=== PATIENT | female | born 2000 | race African-American/Black ===

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

== ENCOUNTER 2019-02-28 21:30 | Emergency (ER) | payer OTHER ==
[~2019-02-28] VITALS: Ht 175.3 cm; Wt 59.9 kg
[~2019-02-28 21:30] MED LIST: BIOT5TAB3 PO; HYDR-3363 PO; NICO14PA TD; QUET1TAB8 PO; QUET5TAB PO; SERT-141 PO; TRAZ1TAB10 PO; seroquel
[2019-02-28] MEDS ORDERED: LITH1TAB (21:58)
[2019-03-01 02:29] VITALS: BP 131/73
== END 2019-03-01 02:36 | disposition short-term general hospital (02) ==
LOC: M ED 22:36
DX: F32.9 Major depressive disorder, single episode, unspecified (principal); R45.851 Suicidal ideations; F15.10 Other stimulant abuse, uncomplicated; Z79.899 Other long term (current) drug therapy

== ENCOUNTER 2019-12-01 11:54 | Inpatient (IN) | payer MEDICAID, OTHER ==
[~2019-12-01] VITALS: Ht 177.8 cm; Wt 67.9 kg
[~2019-12-01 11:54] MED LIST changes: +LITH1TAB; +QUET100T2 PO; -QUET1TAB8 PO
[2019-12-01] MEDS ORDERED: TRAZ-252 PO (12:23)
[2019-12-01] MEDS ORDERED: HYDR-643 PO (12:23)
[2019-12-01] MEDS ORDERED: LAMO200T54 PO (12:23)
[2019-12-01] MEDS ORDERED: MIRT1TAB16 PO (12:23)
[2019-12-01] MEDS ORDERED: MOM 30ML SUSPENSION UDC PO PRN (15:00)
[2019-12-01] MEDS ORDERED: ACETAMINOPHEN TAB 650MG DOSE (2X325MG) PO PRN (15:00)
[2019-12-01] MEDS ORDERED: MAALOX 30 ML SUSP *UDC PO PRN (15:00)
[2019-12-01] MEDS ORDERED: MEDR150I10 IM (15:11)
[2019-12-01] MEDS ORDERED: REME30TA PO (15:11)
[2019-12-01 16:05] VITALS: BP 132/77
[2019-12-01] MEDS: MIRTAZAPINE 15 MG TAB PO SCH (20:53)
[2019-12-02 06:29] VITALS: BP 122/62
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
[2019-12-02] MEDS ORDERED: lamoTRIgine 25 MG TAB PO ONE (11:00)
[2019-12-02 17:08] VITALS: BP 137/65
[2019-12-02 17:29] LABS: HEMATOCRIT 39.9 % (36.0-47.0); HEMOGLOBIN 13.3 g/dl (12.0-15.5); MEAN CORPUSCULAR HEMOGLOBIN 29.8 pg (27.0-33.0); MEAN CORPUSCULAR HGB CONC 33.3 g/dl (32.0-36.5); MEAN CORPUSCULAR VOLUME 89.3 fl (80.0-96.0); PLATELET COUNT, AUTOMATED 330 10^3/uL (150-450); RED BLOOD COUNT 4.47 10^6/uL (4.00-5.40); WHITE BLOOD COUNT 7.1 10^3/uL (4.0-10.0)
[2019-12-02 18:04] LABS: ALBUMIN 4.2 GM/DL (3.2-5.2); ALT/SGPT 31 U/L (12-78); BILIRUBIN,TOTAL 0.3 MG/DL (0.2-1.0); BLOOD UREA NITROGEN 17 MG/DL (7-18); CALCIUM LEVEL 9.4 MG/DL (8.5-10.1); CARBON DIOXIDE LEVEL 23 MEQ/L (21-32); CHLORIDE LEVEL 106 MEQ/L (98-107); CREATININE FOR GFR 0.86 MG/DL (0.55-1.30); GLUCOSE, FASTING 81 MG/DL (70-100); MAGNESIUM LEVEL 2.2 MG/DL (1.8-2.4); POTASSIUM SERUM 3.9 MEQ/L (3.5-5.1); SODIUM LEVEL 140 MEQ/L (136-145); TOTAL PROTEIN 7.7 GM/DL (6.4-8.2)
[2019-12-02] MEDS: MIRTAZAPINE 15 MG TAB PO SCH (20:06)
[2019-12-03 06:08] VITALS: BP 122/59
[2019-12-03] MEDS: lamoTRIgine 25 MG TAB PO SCH (08:45)
[2019-12-03 16:22] VITALS: BP 145/68
[2019-12-03] MEDS: QUEtiapine FUMARATE 25 MG TAB PO SCH (20:11)
[2019-12-03] MEDS: MIRTAZAPINE 15 MG TAB PO SCH (20:11)
[2019-12-03] MEDS: traZODone 50 MG TAB PO PRN (20:11)
[2019-12-04 06:23] VITALS: BP 108/54
[2019-12-04] MEDS: lamoTRIgine 25 MG TAB PO SCH (09:25)
--- NOTE | 2019-12-04 15:58 | MHIPN ---
DATE: 12/03/2019 This is a video assessment, it is being done because of the virus pandemic, the patient is aware of this. CHIEF COMPLAINT: She feels depressed. SUBJECTIVE: She is seen for followup, in the presence of staff. She says she has continued feeling depressed, does not think that she is feeling much different since coming in, moods are down, says has slept, but does not feel rested. She feels anxious as well. Vague on suicidal thoughts, and then suggests that she does not have any. She also reported that she had had thoughts of suicide but did not act on those thoughts, though the initial assessment suggests that she actually overdosed. She says she has been diagnosed with bipolar disorder, was diagnosed last year, attends outpatient at [place]. Reports periods of a depressed mood, which is consistent, also changes in appetite and sleep, a sense of hopelessness, suicidal thoughts, and that these periods last for weeks at a time. She also has periods where she has an elated mood, no sleep, racing thoughts, is impulsive, more energetic, full of ideas, will start projects but not complete them, go on spending sprees, will make financial and social decisions which are impulsive, says these periods do not last for more than a couple of days or so, denies that they have ever gone as long as a week. She says the periods of an elated mood are generally followed by "crash" where she feels tired, sleeps more, withdraws socially, appetite goes up, feels depressed. Those periods last longer. She says she is adopted, but that she was informed that her biological mother and brother were both diagnosed with bipolar disorder. She uses cannabis, says the use goes up when she is in an elated mood, but that she also uses mushrooms at that time. She says there are times when she uses mushrooms when depressed, and that may be followed a period of an elated mood, but other times when she is more likely to use mushrooms when she already has an elated mood. MENTAL STATUS EXAMINATION: She is neat, cooperative, but somewhat guarded. No agitation. No psychomotor retardation. She answers questions briefly. Affect is restricted in range. She feels depressed. Denies any suicidal thoughts or intents. No homicidal ideas or intents. Currently no evidence of any psychosis. Cognition grossly intact. No fluctuation of consciousness. Judgment and insight are questionable. ASSESSMENT: 1. Other specified bipolar and related disorder. 2. Rule out major depressive disorder, recurrent. The patient has been diagnosed with bipolar disorder. The symptoms she describes particularly with hypomania point towards that, except for the length of time, which she says does not go beyond a couple of days or so. She says when she was at [facility], admitted, within the last few months or year or so, says they thought she may have bipolar disorder, but they also considered borderline personality disorder, and opted for the bipolar disorder. PLAN: Since she is effectively been off the Lamictal, was on 200 mg daily, and after the overdose was not given any for a few days, and this was restarted at 25 mg, we will continue with 25 mg daily. We may need to titrate it upward slowly. Meanwhile, I would suggest starting Seroquel to help with mood stabilization as Lamictal may not be an effective mood stability on its own. She says she has been on it since last summer, at the dose of 200 mg daily, and she does not think that it has made much difference. She thinks she may have been on Seroquel in the past, and tolerated it well. The rationale for using the Seroquel is discussed, as are the drawbacks, and she understands them. The Seroquel may need to be titrated up eventually. I would suggest continuing with the Remeron, but avoid an increase in that. She is to be encouraged to participate in activities on the unit, as tolerated, and feasible, and we will continue with the other precautions. Further recommendations to be made depending on the clinical picture. The assessment took 25 minutes.
[2019-12-04 16:45] VITALS: BP 135/70
[2019-12-04] MEDS: QUEtiapine FUMARATE 25 MG TAB PO SCH (20:28)
[2019-12-04] MEDS: traZODone 50 MG TAB PO PRN (20:28)
[2019-12-04] MEDS: MIRTAZAPINE 15 MG TAB PO SCH (20:28)
--- NOTE | 2019-12-05 04:15 | HPE ---
DATE OF ADMISSION: 12/02/2019 CHIEF COMPLAINT: Bipolar disorder. HISTORY OF PRESENTING ILLNESS: This is a 19-year-old female with a history of bipolar disorder, prior inpatient mental health unit ([facility]) admissions being medically examined. No acute medical complaints. Denies fever or chills, weight gain and weight loss, insomnia, sore throat, ear pain, changes in vision, blurred vision, dizziness, lightheadedness, chest pain, pressure, tightness, shortness of breath, nausea, vomiting, diarrhea, abdominal pains, urgency, frequency. PAST MEDICAL HISTORY: 1. Bipolar disorder. 2. Anxiety. 3. Self-harming and cutting. 4. Depression. PAST SURGICAL HISTORY: None. SOCIAL HISTORY: Now lives in [place]. Currently single. 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 Uses vaping. Drinks wine coolers monthly. ALLERGIES: No known drug allergies. HOME MEDICATIONS: - hydroxyzine - medroxyprogesterone acetate - trazodone - lamotrigine - mirtazapine HOSPITAL MEDICATIONS: - acetaminophen - Mylanta - Lamictal - Milk of Magnesia - Remeron - Desyrel FAMILY HISTORY: Adopted, unable to be obtained. REVIEW OF SYSTEMS: Per history of presenting illness (HPI). 12-point system otherwise negative. PHYSICAL EXAMINATION: Temperature 98.8, pulse 69, respiratory rate 14, blood pressure 122/62, 99% on room air. Generally: Awake, alert, oriented times three. Answers questions appropriately. Normal affect. No jugular venous distension (JVD) or thyromegaly. Neck is supple. Full range of motion. Lungs: Are clear to auscultation. No wheezing, rales, or rhonchi. Heart: S1, S2, sinus rhythm. Abdomen: Soft, nontender, nondistended. Positive bowel sounds. Extremities: No cyanosis, clubbing, or pitting edema. LABORATORY DATA: None. ASSESSMENT AND PLAN: This is a 19-year-old with bipolar disorder admitted to inpatient mental health unit. Hospitalist was called for medical evaluation. Patient currently has no acute medical issues. IMPRESSION: Bipolar disorder. Managed by her psychiatrist. Currently has no medical issues, but we will check thyroid-stimulating hormone (TSH), lipid profile, basic metabolic panel (BMP), liver function tests. [facility]
[2019-12-05 06:37] VITALS: BP 111/71
[2019-12-05] MEDS: lamoTRIgine 25 MG TAB PO SCH (08:23)
--- NOTE | 2019-12-05 10:05 | MHDSPDOC ---
[facility] Discharge Summary Discharge Summary DATE OF ADMISSION: December 01, 2019 at 14:58 DATE OF DISCHARGE: Dec 05, 2019 at 12:30 DISCHARGE DIAGNOSES: (1) Depressed (2) Cluster B personality disorder (3) Cannabis abuse REASON FOR ADMISSION: 19-year-old woman admitted after overdose of hydroxyzine CONSULTANTS INVOLVED: none TREATMENT AND PROGRESS ON THE UNIT : patient was admitted to the inpatient mental health unit, where she revealed she had not been taking her medications, she was resumed on her mirtazapine but her Lamictal was restarted at 25 milligrams. She was additionally resumed on trazodone that any incident. She made good progress in resolved after observation. Denies any suicidal or homicidal ideation. She was in behavioral control during her presentation DISCHARGE ASSESSMENT: 19-year-old woman with likely depression and cluster B personality traits presents after impulsive overdose. After stopping taking her medications. She is treated by resuming her medications without incident. The patient at the time of discharge did not meet criteria for involuntary admission/extension due to having a baseline mental status exam, improved insight into the situation, They are engaged in the discharge process, as well as being friendly and amenable in behavioral control and havent been engaging in any observed concerning behavior or ideation recently. They decline voluntary extension/admission at this time and must be discharged in good tennille, as Im unable to make a case for holding the patient against their will. They may have historical risk factors of admissions and other interactions with psychiatry however, those are not modifiable from a clinical perspective. The patient will need to be discharged in good tennille. MENTAL STATUS EXAMINATION ON DISCHARGE: General: Well dressed with good hygiene Speech: Spontaneous and fluid Thought processes: Linear and logical Thought content: Future orientated Abstract reasoning, and computation: Intact Description of associations: Intact Description of abnormal or psychotic thoughts:Denies any suicidal or homicidal ideation. Denies any auditory or visual hallucinations. Does not appear to be responding to internal stimuli. Does not appear to be endorsing any bizarre or paranoid ideation. Judgment: chronically limited Insight: chronically limited Orientation: Alert and orientated 3 Recent and remote memory: Intact Attention span and concentration: Intact Fund of knowledge: Adequate Mood: "okay" Affect: Euthymic with a full range PLAN/FOLLOWUP ARRANGEMENTS: [facility] follow-up made safety plan done. The amount of time spent in the coordination of care for this patient was approximately 45 minutes. Vital Signs/I&Os Vital Signs Date Time Temp Pulse Resp B/P (MAP) Pulse Ox O2 Delivery O2 Flow Rate FiO2 12/05/19 06:37 98.2 67 16 111/71 (84) 99 Room Air Medications Scheduled Lamotrigine (Lamictal) 25 Mg Tablet, 25 MG PO QAM for MOOD for 7 Days, #7 Medroxyprogesterone Acetate (Medroxyprogesterone Acetate) 150 Mg/1 Ml Vial, 150 MG IM Q3M, (Reported) DUE TO RECEIVE NEXT DOSE MID-DECEMBER Mirtazapine (Remeron) 30 Mg Tablet, 30 MG PO QHS, (Reported) Quetiapine Fumarate (Quetiapine Fumarate) 50 Mg Tablet, 1 TAB PO QPM for mood for 7 Days, #7 Trazodone HCl (Trazodone HCl) 50 Mg Tablet, 25 MG PO QHS, (Reported) Allergies Coded Allergies: No Known Allergies (Unverified , 06/17/18) RALPH MONROE DO Dec 05, 2019 10:05
[2019-12-05] MEDS ORDERED: LAMI25TA PO (10:14)
[2019-12-05] MEDS ORDERED: QUET50TA48 PO (10:14)
[2019-12-05] MEDS ORDERED: QUET5TAB PO (12:20)
[2019-12-05] MEDS ORDERED: QUEtiapine FUMERATE XR 50 MG TABER PO SCH (21:00)
--- NOTE | 2019-12-06 06:26 | MHIPN ---
DATE: 12/05/2019 VITAL SIGNS: Blood pressure 135/70, pulse 71, temperature 97.8. CHIEF COMPLAINT: Feels better. SUBJECTIVE: Seen for followup. This is a video assessment. She is aware of this and agrees to it. Says feels better and that she had a better night's sleep. Feels rested. Appetite is improved. Feels less anxious. MENTAL STATUS EXAMINATION: Neat. Cooperative. More interactive. Broader affect. Coherent. Says is not sure of suicidal thoughts and does not think that she has any at present. No homicidal ideas or intent. No evidence of any psychosis. Cognition grossly intact. Judgment is fair. Insight possibly improved. ASSESSMENT: Other specified bipolar and related disorder. Rule out major depressive disorder, recurrent. PLAN: Continue Seroquel at 25 mg at night. May need to consider increasing it to 50 mg for tomorrow night onwards, and may also consider, later, increasing the Lamictal. Encouraged participation in activities in the unit. Further recommendations will be made by the inpatient psychiatrist tomorrow.
== END 2019-12-05 12:30 | disposition home or self-care (01) | DRG 754 ==
LOC: M ED 11:54 → M ED INP 14:58 → M PSY 15:34
PROVIDERS: ADMIT Psychiatry & Neurology Addiction Medicine; ATTEND Psychiatry & Neurology Addiction Medicine
DX: F32.9 Major depressive disorder, single episode, unspecified (principal); Z91.14 Patient's other noncompliance with medication regimen; F60.89 Other specific personality disorders; F12.90 Cannabis use, unspecified, uncomplicated; Z79.899 Other long term (current) drug therapy

== ENCOUNTER → 2020-05-23 | Outpatient (CLI) | payer OTHER ==
[~2020-05-23] MED LIST changes: +HYDR-643 PO; +LAMI25TA PO; +LAMO200T54 PO; +MEDR150I10 IM; +MIRT1TAB16 PO; +QUET50TA48 PO; +REME30TA PO; +TRAZ-252 PO
[2020-05-23 12:05] VITALS: BP 128/60
--- NOTE | 2020-05-23 12:50 | REP ---
INDICATION: N63.20 LT BREAST MASS. COMPARISON: Ultrasound [facility] 11/22/2019. TECHNIQUE: Real-time sonographic evaluation of left breast performed. Ultrasound guidance was provided for biopsy. FINDINGS: Solid nodule noted at 6 o'clock position left breast demonstrating internal blood flow with Doppler evaluation. It measures 1.7 cm in diameter. IMPRESSION: Ultrasound guidance provided for ultrasound-guided biopsy of left breast nodule at 6 o'clock. The final image shows a linear biopsy clip within the nodule. RECOMMENDATION: Clinical follow-up. <Electronically signed by Odilon Dee > 05/23/20 1247
--- NOTE | 2020-05-26 17:10 | ROOPDOC ---
[facility] Report Of Operation Report of Operation DATE OF PROCEDURE: 05/23/2020 DIAGNOSIS: Suspicious palpable left breast mass PROCEDURE: Ultrasound-guided biopsy of suspicious palpable left breast mass SURGEON: Anh Hwang BLOOD LOSS: minimal COMPLICATIONS: none Lidocaine 1% LOT [id number] Expiration 02/2023 Sodium Bicarbonate 8.4% LOT [id number] Expiration 04/2021 Hydromark clip LOT [id number] Expiration 11/2022 SHAPE 4 Bx device: BARD [id number] x10 cm LOT [id number] Expiration 01/2023 Informed consent was obtained. The most common risk and possible complications including bleeding, hematoma, bruising, infection, injury to surrounding structures were explained to the patient and the patient expressed un derstanding. Patient was placed on the bed in the supine position. Appropriate time out was done stating patients name, date of , and the procedure to be performed. The left breast was prepped and draped in the usual fashion. The ultrasound was used to confirm the location of the lesion in the left breast at 7 oclock 2 centimeters from the nipple. Plain Lidocaine 1% and 8.4% sodium bicarbonate 10:1 mix was used to anesthetize the skin, the biopsy site and tissues along the anticipated biopsy tract. Small skin incision was made with blade number 11. BARD Marquee 14G cannula with introducer ([id number]) was inserted through the incision and advanced under the ultrasound guidance to position immediately adjacent to the lesion. Next, the introducer was removed and BARD Marquee 14G biopsy device was places in the cannula. Pre-biopsy imaging, and post-biopsy imaging were captured. Five good core biopsies were taken at various levels of the lesion. Specimen was placed in formaldehyde, labeled with appropriate biopsy site and patients name, and sent to pathology for evaluation. Next, the biopsy device was withdrawn and a clip introducer was inserted into the biopsy site via the cannula. The SHAPE 4 Hydromark clip was deployed under sonographic guidance. Post-clip placement image was captured. Manual pressure over the biopsy cavity and tract was held after the clip introducer was withdrawn. No bleeding was noted upon removal of the pressure. Post-biopsy mammogram of the left breast was obtained and showed clip in expected position. Postprocedural dressing was placed. Patient tolerated procedure well. Discharge instructions were discussed with the patient and the patient expressed understanding. ANH HWANG DO May 26, 2020 17:10
== END ==
LOC: M WHCPRO 10:32
PROVIDERS: ATTEND Surgery
DX: N60.22 Fibroadenosis of left breast (principal)

== ENCOUNTER → 2020-07-05 | Outpatient (CLI) | payer OTHER ==
[~2020-07-05] MED LIST changes: +BUSP10TA PO; +MIRT-60 PO; -REME30TA PO
== END ==
LOC: M LABSMTC 11:30
PROVIDERS: ATTEND Anesthesiology
DX: Z01.812 Encounter for preprocedural laboratory examination (principal); Z20.828 Contact with and (suspected) exposure to other viral communicable diseases

== ENCOUNTER 2020-07-10 06:15 | Day surgery (SDC) | payer OTHER ==
[~2020-07-10] VITALS: Ht 177.8 cm; Wt 66.7 kg
[2020-07-10] MEDS ORDERED: LIDOCAINE 1% SDV 30ML VIAL As Ordered ONE (07:10)
[2020-07-10] MEDS ORDERED: BUPIVACAINE HCL 0.25% 30ML VIAL As Ordered ONE (07:11)
[2020-07-10] MEDS ORDERED: SCOPOLAMINE 1MG TRANSDERMAL PATCH As Ordered ONE (07:15)
[2020-07-10] MEDS ORDERED: HEPARIN SOD (PORCINE) 5000UNITS/ML 1ML VIAL/SYRINGE As Ordered ONE (07:15)
[2020-07-10] MEDS ORDERED: ceFAZolin 2 GM/D5W 50 ML IV BAG (J0690 PER 500MG) As Ordered ONE (07:15)
[2020-07-10] MEDS ORDERED: LIDOCAINE 2% 100MG/5ML SDV (FOR ANES.) As Ordered ONE (07:20)
[2020-07-10] MEDS ORDERED: propofoL 200 MG/20 ML VIAL As Ordered ONE (07:20)
[2020-07-10] MEDS ORDERED: fentaNYL 100 MCG/2 ML INJECTION (J3010) As Ordered ONE (07:21)
[2020-07-10] MEDS ORDERED: ceFAZolin SOD 2 GM in IV 1 EA IV ONE (07:30)
[2020-07-10] MEDS ORDERED: HEPARIN SOD (PORCINE) 5000UNITS/ML 1ML VIAL/SYRINGE SQ ONE (07:30)
[2020-07-10] MEDS ORDERED: LR 1,000 ML IV ONE (07:30)
[2020-07-10] MEDS ORDERED: SCOPOLAMINE 1MG TRANSDERMAL PATCH TOP ONE (07:30)
[2020-07-10] MEDS ORDERED: MIDAZOLAM INJ 2MG/2ML VIAL (J2250 PER 1MG) As Ordered ONE (07:37)
[2020-07-10] MEDS ORDERED: dexameTHASONE 4 MG/ML 1ML VIAL (J1100 PER 1MG) As Ordered ONE (08:21)
[2020-07-10] MEDS ORDERED: ONDANSETRON 4MG/2ML VIAL As Ordered ONE (08:21)
[2020-07-10] MEDS ORDERED: LACRILUBE (AKWA TEARS) OPHTH OINT 3.5 GM As Ordered ONE (08:28)
[2020-07-10] MEDS ORDERED: KETO10TAB PO (09:01)
[2020-07-10] MEDS ORDERED: LR 1,000 ML IV SCH (09:30)
[2020-07-10] MEDS ORDERED: METOCLOPRAMIDE INJ 10MG/2ML VIAL (J2765 PER 1) IV PRN (09:30)
[2020-07-10] MEDS ORDERED: HYDROMORPHONE HCL 0.5 MG/ 0.5 ML SYRINGE (J1170 PER 1) IV PRN (09:30)
[2020-07-10] MEDS ORDERED: fentaNYL 100 MCG/2 ML INJECTION (J3010) IV PRN (09:30)
[2020-07-10] MEDS ORDERED: ONDANSETRON 4MG/2ML VIAL IV PRN (09:30)
[2020-07-10 10:20] VITALS: BP 129/76
--- NOTE | 2020-07-11 09:34 | REP ---
INDICATION: LEFT BREAST BIOPSY. COMPARISON: Comparison sonography May 23, 2020.. TECHNIQUE: Single-view specimen radiograph left breast. FINDINGS: Specimen radiography demonstrates a well-circumscribed mass in the excised breast specimen. Two smaller fragments of tissue are seen adjacent 1 of which contains a needle localization biopsy marker clip IMPRESSION: A well-circumscribed of soft tissue mass is seen within the breast specimen. This measures 1.6 cm in diameter. It is consistent with the biopsied lesion seen on sonography. <Electronically signed by Kee Amaya > 07/11/20 0933
--- NOTE | 2020-07-11 17:58 | ROOPDOC ---
[facility] Report Of Operation Report of Operation DATE OF PROCEDURE: 07/10/20 PREPROCEDURE DIAGNOSES: Left breast fibroadenoma POSTPROCEDURE DIAGNOSES: Left breast fibroadenoma PROCEDURE: Left breast excisional biopsy with Intra-Op specimen radiography SURGEON: Anh Hwang ANESTHESIA: General ESTIMATED BLOOD LOSS: Approximately 5 mL. COMPLICATIONS: None REMARKS: Hydromark clip identified immediately adjacent to the palpable mass DESCRIPTION OF PROCEDURE: INDICATIONS: Ms. Rivera is a 20-year-old woman who was found to have an enlarging and a suspicious mass in her left breast which was conformed on the Left breast sonography. She underwent ultrasound guided biopsy of the left breast and the pathology came back as fibroadenoma. Due to the size of the lesion approaching 2 cm and due to the fact that the lesion grew since previous sonographic evaluation patient was offered left breast excisional biopsy. No guide wire placement is needed due to the fact that lesion is palpable. She was medically cleared for surgery by her primary care doctor. Risks and possible complications of surgical procedure including bleeding, infection and injury to surrounding structures were explained to the patient and she wished to proceed. Consent was signed. My initials were placed on the operative site. Subcutaneous injection of 5000 units of heparin was done in Preop. DETAILS: Patient was taken to the operating room and placed on the operating room table. A sign in was called stating patients name, date of and the procedure to be done. Preoperative antibiotics were infused. Smooth induction of general anesthesia was done. Patients hands were extended on arm rests. Care was taken not to over extend the arms. Pillow was placed under the knees and a foam was placed under the heels. Sequential compression devices were placed and assured to function correctly. Next, patients left breast and axilla were prepped and draped in the usual fashion. Appropriate time out was done again prior second part of the procedure. Patients name, date of , and the procedure to be done were confirmed. Next, local anesthetic using 1% lidocaine and 0.25 % Marcaine 50/50 mix was injected at the site of planned left inframammary fold incision. The incision was made with the scalpel. Subcutaneous skin flaps were raised. Palpation was used to guide the dissection. Upon encountering the capsule of the fibroadenoma, an anchoring stitch was placed to aid with removal of the lesion. Surrounding soft tissue was carefully dissected from the capsule. During dissection I noted the Hydromark. This was carefully removed from the dissection area and placed on the specimen tray to be x-rayed along with the specimen. The excisional biopsy specimen was carefully removed from the breast keeping its proper orientation and moved to the back table where margins were marked with the surgical inking kit following the standard colors recommendations. Specimen was then placed on the grid and placed in H-art (WPP) Specimen Imaging System. The image revealed the nodule and the Hydromark clip. The specimen was labeled with patients name and left excisional biopsy and sent to pathology. Next, the wound was irrigated thoroughly and adequate hemostasis was assured. Additional local anesthetic was injected into surrounding tissues. space was approximated with 2-0 Vicryl. The dermis was closed with 3-0 Vicryl and skin was closed with 4-0 Monocryl. Surgical glue was placed over the incision. Patient emerged from the anesthesia without any problems. Fluffs were placed over the operative site and patients chest was wrapped snuggly in the MYLENE wrap. Sponge and instrument counts were done and were correct. Patient tolerated procedure well and was taken to recovery unit in stable condition. ANH HWANG DO Jul 11, 2020 17:58
== END 2020-07-10 10:20 | disposition home or self-care (01) ==
LOC: M SDC 06:15
PROVIDERS: ATTEND Surgery
DX: N60.22 Fibroadenosis of left breast (principal); F41.9 Anxiety disorder, unspecified; F32.9 Major depressive disorder, single episode, unspecified; Z79.899 Other long term (current) drug therapy; F17.218 Nicotine dependence, cigarettes, with other nicotine-induced disorders; F12.10 Cannabis abuse, uncomplicated
CPT/HCPCS: 19120; 36415; 81025; 86850; 86900; 86901; 88305; J0690; J1100; J1644; J2250; J2405; J3010

== ENCOUNTER → 2020-07-19 | Outpatient (REF) | payer OTHER ==
[~2020-07-19] MED LIST changes: +KETO10TAB PO
[2020-07-19 16:27] LABS: FREE T4 0.91 NG/DL (0.76-1.46); THYROID STIMULATING HORMONE 0.655 uIU/ML (0.358-3.740)
[2020-07-19 16:42] LABS: PROLACTIN 6.2 NG/ML
== END ==
LOC: M PLALAB 13:10
PROVIDERS: ATTEND Surgery
DX: N64.52 Nipple discharge (principal)

== ENCOUNTER 2022-02-15 10:33 | Emergency (ER) | payer OTHER ==
[~2022-02-15] VITALS: Ht 177.8 cm; Wt 72.5 kg
[~2022-02-15 10:33] MED LIST changes: +QUET50TA4 PO; -QUET5TAB PO
[2022-02-15 11:57] LABS: BASO # 0.1 10^3/uL (0.0-0.2); BASO % 0.8 % (0.0-1.0); EOS # 0.3 10^3/uL (0.0-0.5); EOS % 3.8 % (0.0-3.0); HEMATOCRIT 39.5 % (36.0-47.0); HEMOGLOBIN 12.8 g/dl (12.0-15.5); LYMPH # 1.8 10^3/uL (1.5-5.0); LYMPH % 24.8 % (24.0-44.0); MEAN CORPUSCULAR HEMOGLOBIN 28.4 pg (27.0-33.0); MEAN CORPUSCULAR HGB CONC 32.4 g/dl (32.0-36.5); MEAN CORPUSCULAR VOLUME 87.8 fl (80.0-96.0); MONO # 0.5 10^3/uL (0.0-0.8); MONO % 7.4 % (2.0-8.0); NEUTROPHILS # 4.5 10^3/uL (1.5-8.5); NEUTROPHILS % 62.9 % (36.0-66.0); PLATELET COUNT, AUTOMATED 340 10^3/uL (150-450); WHITE BLOOD COUNT 7.2 10^3/uL (4.0-10.0)
[2022-02-15 12:39] LABS: HCG, SERUM QUALITATIVE NEGATIVE (NEGATIVE)
[2022-02-15 12:48] LABS: ALBUMIN 4.4 GM/DL (3.2-5.2); ALT/SGPT 20 U/L (12-78); BILIRUBIN,DIRECT 0.4 MG/DL (0.0-0.2); BILIRUBIN,TOTAL 1.1 MG/DL (0.2-1.0); BLOOD UREA NITROGEN 11 MG/DL (7-18); CALCIUM LEVEL 9.9 MG/DL (8.5-10.1); CARBON DIOXIDE LEVEL 22 MEQ/L (21-32); CHLORIDE LEVEL 105 MEQ/L (98-107); CREATININE FOR GFR 0.79 MG/DL (0.55-1.30); GLOMERULAR FILTRATION RATE > 60.0 (>60); GLUCOSE, FASTING 104 MG/DL (70-100); LIPASE 95 U/L (73-393); SODIUM LEVEL 133 MEQ/L (136-145); TOTAL PROTEIN 7.9 GM/DL (6.4-8.2)
[2022-02-15 17:42] VITALS: BP 139/73
== END 2022-02-15 17:51 | disposition home or self-care (01) ==
LOC: M ED 10:33
DX: R93.5 Abnormal findings on diagnostic imaging of other abdominal regions, including retroperitoneum (principal); E80.6 Other disorders of bilirubin metabolism; E87.1 Hypo-osmolality and hyponatremia; F31.9 Bipolar disorder, unspecified; G43.909 Migraine, unspecified, not intractable, without status migrainosus; Z87.448 Personal history of other diseases of urinary system; F17.200 Nicotine dependence, unspecified, uncomplicated

== ENCOUNTER 2022-02-25 02:13 | Inpatient (IN) | payer OTHER ==
[~2022-02-25] VITALS: Ht 170.2 cm; Wt 71.8 kg
[2022-02-25 02:50] LABS: HEMATOCRIT 36.5 % (36.0-47.0); HEMOGLOBIN 11.8 g/dl (12.0-15.5); MEAN CORPUSCULAR HEMOGLOBIN 28.6 pg (27.0-33.0); MEAN CORPUSCULAR HGB CONC 32.3 g/dl (32.0-36.5); MEAN CORPUSCULAR VOLUME 88.6 fl (80.0-96.0); PLATELET COUNT, AUTOMATED 351 10^3/uL (150-450); RED BLOOD COUNT 4.12 10^6/uL (4.00-5.40); WHITE BLOOD COUNT 6.6 10^3/uL (4.0-10.0)
[2022-02-25 03:11] LABS: HCG, SERUM QUALITATIVE NEGATIVE (NEGATIVE)
[2022-02-25 03:27] LABS: ACETAMINOPHEN LEVEL < 2.0 UG/ML (10.0-30.0); ALBUMIN 4.3 GM/DL (3.2-5.2); ALT/SGPT 19 U/L (12-78); AMPHETAMINES LEVEL URINE NEGATIVE (NEGATIVE); BARBITURATES URINE NEGATIVE (NEGATIVE); BENZODIAZEPINES URINE NEGATIVE (NEGATIVE); BILIRUBIN,DIRECT < 0.1 MG/DL (0.0-0.2); BILIRUBIN,TOTAL 0.3 MG/DL (0.2-1.0); BLOOD UREA NITROGEN 12 MG/DL (7-18); CALCIUM LEVEL 8.9 MG/DL (8.5-10.1); CANNABINOIDS URINE POSITIVE (NEGATIVE); CARBON DIOXIDE LEVEL 23 MEQ/L (21-32); CHLORIDE LEVEL 109 MEQ/L (98-107); COCAINE METABOLITE URINE NEGATIVE (NEGATIVE); CREATININE FOR GFR 0.78 MG/DL (0.55-1.30); ETHYL ALCOHOL (ETHANOL) 0.071 % (0.000-0.010); GLOMERULAR FILTRATION RATE > 60.0 (>60); GLUCOSE, FASTING 92 MG/DL (70-100); METHADONE URINE NEGATIVE (NEGATIVE); OPIATES URINE NEGATIVE (NEGATIVE); PHENCYCLIDINE URINE NEGATIVE (NEGATIVE); POTASSIUM SERUM 3.4 MEQ/L (3.5-5.1); SALICYLATE LEVEL < 1.7 MG/DL (5.0-30.0); SODIUM LEVEL 141 MEQ/L (136-145); TOTAL PROTEIN 7.7 GM/DL (6.4-8.2)
[2022-02-25 03:31] LABS: RSV AMPLIFICATION NEGATIVE (NEGATIVE)
[2022-02-25] MEDS ORDERED: HOME MED LIST COMPLETE! XX SCH (09:35)
[2022-02-26] MEDS ORDERED: NICOTINE 21MG/24HR 1 EA TRANSDERMAL TD ONE (09:00)
[2022-02-26] MEDS ORDERED: LORazepam 2 MG TAB PO STA (12:17)
[2022-02-27] MEDS ORDERED: NICOTINE 21MG/24HR 1 EA TRANSDERMAL TD SCH (09:00)
[2022-02-27 11:35] LABS: RSV AMPLIFICATION NEGATIVE (NEGATIVE)
[2022-02-27] MEDS ORDERED: LORazepam 2 MG TAB PO PRN (12:20)
[2022-02-27] MEDS ORDERED: IBUPROFEN 400MG TAB PO PRN (12:20)
[2022-02-27] MEDS ORDERED: MAALOX 30 ML SUSP *UDC PO PRN (12:20)
[2022-02-27] MEDS ORDERED: MOM 30ML SUSPENSION UDC PO PRN (12:20)
[2022-02-27 15:20] VITALS: BP 137/89
[2022-02-27] MEDS: FOLIC ACID 1MG TAB PO SCH (17:42)
[2022-02-27] MEDS: THIAMINE 100 MG TAB PO SCH ×2 (17:42→21:48)
[2022-02-27] MEDS: MULTIVITAMINS/MINERALS THERAP 1 TAB PO SCH (17:42)
[2022-02-27] MEDS: traZODone 50 MG TAB PO PRN (21:48)
[2022-02-28 00:53] VITALS: BP 131/84
[2022-02-28 06:27] VITALS: BP 115/57
[2022-02-28] MEDS: FOLIC ACID 1MG TAB PO SCH (09:07)
[2022-02-28] MEDS: MULTIVITAMINS/MINERALS THERAP 1 TAB PO SCH (09:07)
[2022-02-28] MEDS: FLUoxetine 20MG CAP PO SCH (09:07)
[2022-02-28] MEDS: THIAMINE 100 MG TAB PO SCH ×2 (09:07→20:24)
[2022-02-28] MEDS: NICOTINE 21MG/24HR 1 EA TRANSDERMAL TD SCH (09:08)
[2022-02-28 09:50] VITALS: BP 130/67
[2022-02-28 09:51] VITALS: BP 130/67
[2022-02-28 19:06] VITALS: BP 142/77
[2022-02-28] MEDS: traZODone 50 MG TAB PO PRN (20:24)
[2022-02-28] MEDS: PRAZOSIN 1 MG CAP PO SCH (20:26)
[2022-02-28 22:50] VITALS: BP 111/56
[2022-03-01 06:24] VITALS: BP 141/65
[2022-03-01] MEDS: FOLIC ACID 1MG TAB PO SCH (08:15)
[2022-03-01] MEDS: NICOTINE 21MG/24HR 1 EA TRANSDERMAL TD SCH (08:15)
[2022-03-01] MEDS: FLUoxetine 20MG CAP PO SCH (08:15)
[2022-03-01] MEDS ORDERED: ONDANSETRON 4MG TAB PO PRN (16:40)
[2022-03-01] MEDS: diphenhydrAMINE 25MG CAP PO PRN (17:43)
[2022-03-01] MEDS: traZODone 50 MG TAB PO PRN (20:20)
[2022-03-01] MEDS: PRAZOSIN 1 MG CAP PO SCH (20:20)
[2022-03-02 06:17] VITALS: BP 114/61
[2022-03-02 08:21] VITALS: BP 114/61
[2022-03-02] MEDS: FLUoxetine 20MG CAP PO SCH (08:37)
[2022-03-02] MEDS: FOLIC ACID 1MG TAB PO SCH (08:37)
[2022-03-02] MEDS: NICOTINE 21MG/24HR 1 EA TRANSDERMAL TD SCH (08:38)
[2022-03-02] MEDS: diphenhydrAMINE 25MG CAP PO PRN (09:38)
[2022-03-02] MEDS ORDERED: LORazepam 1 MG TAB PO ONE (12:15)
[2022-03-02 20:02] VITALS: BP 114/61
[2022-03-02] MEDS: traZODone 50 MG TAB PO PRN (20:02)
[2022-03-02] MEDS: PRAZOSIN 1 MG CAP PO SCH (20:02)
[2022-03-03 06:09] VITALS: BP 115/57
[2022-03-03] MEDS: diphenhydrAMINE 25MG CAP PO PRN (08:31)
[2022-03-03] MEDS: FLUoxetine 20MG CAP PO SCH (08:32)
[2022-03-03] MEDS: FOLIC ACID 1MG TAB PO SCH (08:33)
[2022-03-03] MEDS: NICOTINE 21MG/24HR 1 EA TRANSDERMAL TD SCH (08:33)
[2022-03-03] MEDS ORDERED: NICO21PAT TD (12:11)
[2022-03-03] MEDS ORDERED: FLUO20CA22 PO (12:11)
[2022-03-03] MEDS ORDERED: DIPH25CA32 PO (12:11)
[2022-03-03] MEDS ORDERED: FOLI1TAB11 PO (12:11)
[2022-03-03] MEDS ORDERED: ONDA-83 PO (12:13)
[2022-03-03] MEDS ORDERED: MINI1CAP PO (12:13)
[2022-03-03] MEDS ORDERED: TRAZ-252 PO (12:13)
== END 2022-03-03 13:25 | disposition home or self-care (01) | DRG 755 ==
LOC: M ED 02:13 → M ED INP 02-27 12:19 → M PSY 02-27 13:48
PROVIDERS: ADMIT Student in an Organized Health Care Education/Training Program; ATTEND Psychiatry & Neurology Psychiatry
DX: F43.10 Post-traumatic stress disorder, unspecified (principal); F60.89 Other specific personality disorders; F60.3 Borderline personality disorder; R45.851 Suicidal ideations; Z62.810 Personal history of physical and sexual abuse in childhood; Z91.51 Personal history of suicidal behavior; Z63.8 Other specified problems related to primary support group; Z20.822 Contact with and (suspected) exposure to COVID-19; F17.290 Nicotine dependence, other tobacco product, uncomplicated

== ENCOUNTER 2022-09-18 17:54 | Inpatient (IN) | payer OTHER ==
[~2022-09-18] VITALS: Ht 177.8 cm; Wt 58.6 kg
[~2022-09-18 17:54] MED LIST changes: +DIPH-435 PO; +FLUO20CA22 PO; +FOLI1TAB11 PO; +MINI1CAP PO; +NICO21PAT TD; +ONDA-83 PO; -QUET50TA48 PO; +QUET50TA67 PO
[2022-09-18] MEDS ORDERED: OLANZapine INTRAMUSCULAR 10MG VIAL IM ONE (19:30)
[2022-09-18] MEDS ORDERED: diphenhydrAMINE 50MG/ML VIAL IM ONE (19:30)
[2022-09-18 19:44] LABS: HEMATOCRIT 40.6 % (36.0-47.0); HEMOGLOBIN 13.4 g/dl (12.0-15.5); MEAN CORPUSCULAR HEMOGLOBIN 30.2 pg (27.0-33.0); MEAN CORPUSCULAR VOLUME 91.4 fl (80.0-96.0); PLATELET COUNT, AUTOMATED 367 10^3/uL (150-450); RED BLOOD COUNT 4.44 10^6/uL (4.00-5.40)
[2022-09-18 20:10] LABS: AMPHETAMINES LEVEL URINE NEGATIVE (NEGATIVE)
[2022-09-18 20:11] LABS: BARBITURATES URINE NEGATIVE (NEGATIVE); OPIATES URINE NEGATIVE (NEGATIVE)
[2022-09-18 20:12] LABS: BENZODIAZEPINES URINE NEGATIVE (NEGATIVE); METHADONE URINE NEGATIVE (NEGATIVE); PHENCYCLIDINE URINE NEGATIVE (NEGATIVE)
[2022-09-18 20:13] LABS: COCAINE METABOLITE URINE NEGATIVE (NEGATIVE); ETHYL ALCOHOL (ETHANOL) 0.004 % (0.000-0.010)
[2022-09-18 20:16] LABS: ACETAMINOPHEN LEVEL < 2.0 UG/ML (10.0-20.0); ALBUMIN 4.5 G/DL (3.2-5.2); ALKALINE PHOSPHATASE 67 U/L (46-116); ALT/SGPT 13 U/L (7.0-40); AST/SGOT 15 U/L (<34); BILIRUBIN,DIRECT 0.1 MG/DL (<0.4); BILIRUBIN,TOTAL 0.5 MG/DL (0.3-1.2); BLOOD UREA NITROGEN 11 MG/DL (9-23); CALCIUM LEVEL 9.7 MG/DL (8.5-10.1); CANNABINOIDS URINE POSITIVE (NEGATIVE); CARBON DIOXIDE LEVEL 24 MMOL/L (20-31); CHLORIDE LEVEL 106 MMOL/L (98-107); CREATININE FOR GFR 0.67 MG/DL (0.55-1.30); GLOMERULAR FILTRATION RATE > 60.0 (>60); GLUCOSE, FASTING 93 MG/DL (60-100); SALICYLATE LEVEL < 3.0 MG/DL (<30); SODIUM LEVEL 138 MMOL/L (136-145); TOTAL PROTEIN 7.6 G/DL (5.7-8.2)
[2022-09-18] MEDS ORDERED: NICOTINE 21MG/24HR 1 EA TRANSDERMAL TD ONE (20:35)
[2022-09-18] MEDS ORDERED: FLUO40CA PO (21:59)
[2022-09-18] MEDS ORDERED: BUSP10TA PO (21:59)
[2022-09-18] MEDS ORDERED: MAALOX 30 ML SUSP *UDC PO PRN (22:00)
[2022-09-18] MEDS ORDERED: diphenhydrAMINE 25MG CAP PO PRN (22:00)
[2022-09-18] MEDS ORDERED: HOME MED LIST COMPLETE! XX SCH (22:00)
[2022-09-18] MEDS ORDERED: MOM 30ML SUSPENSION UDC PO PRN (22:00)
[2022-09-18] MEDS ORDERED: OLANZapine 5 MG TAB PO PRN (22:00)
[2022-09-18] MEDS ORDERED: ACETAMINOPHEN TAB 650MG DOSE (2X325MG) PO PRN (22:00)
[2022-09-18] MEDS ORDERED: IBUPROFEN 400MG TAB PO PRN (22:00)
[2022-09-18] MEDS ORDERED: FERR325T3 PO (22:01)
[2022-09-18] MEDS ORDERED: ACET-897 PO (22:01)
[2022-09-18] MEDS: busPIRone 10 MG TAB PO SCH (22:48)
[2022-09-18] MEDS: PRAZOSIN 1 MG CAP PO SCH (22:49)
[2022-09-18 23:42] VITALS: BP 116/58
[2022-09-19] MEDS: traZODone 50 MG TAB PO PRN (00:52)
[2022-09-19] MEDS: LORazepam 1 MG TAB PO PRN ×2 (01:00→10:35)
[2022-09-19 06:31] VITALS: BP 111/65
[2022-09-19] MEDS: NICOTINE 21MG/24HR 1 EA TRANSDERMAL TD SCH (08:38)
[2022-09-19] MEDS: busPIRone 10 MG TAB PO SCH ×2 (08:39→20:13)
[2022-09-19] MEDS: FLUoxetine 20MG CAP PO SCH (08:40)
[2022-09-19] MEDS ORDERED: FLUoxetine 20MG CAP PO SCH (09:00)
[2022-09-19 18:21] VITALS: BP 131/87
[2022-09-19] MEDS: PRAZOSIN 1 MG CAP PO SCH (20:14)
[2022-09-19] MEDS ORDERED: ARIPiprazole 2 MG TAB PO SCH (21:00)
[2022-09-20 06:50] VITALS: BP 116/66
[2022-09-20 07:31] LABS: CHOLESTEROL RISK RATIO 4.67 (<5); HDL CHOLESTEROL 45.3 MG/DL (>40); LDL CHOLESTEROL 153.7 MG/DL (<100); NON-HDL-C 166.7 MG/DL
[2022-09-20] MEDS: NICOTINE 21MG/24HR 1 EA TRANSDERMAL TD SCH (07:37)
[2022-09-20] MEDS: busPIRone 10 MG TAB PO SCH ×2 (07:38→20:42)
[2022-09-20] MEDS: FLUoxetine 20MG CAP PO SCH (07:38)
[2022-09-20] MEDS: LORazepam 1 MG TAB PO PRN (08:44)
[2022-09-20] MEDS ORDERED: INFLUENZA QUADRIVALENT PF VACCINE 0.5ML SYRINGE IM.IMMUN ONE (09:00)
[2022-09-20 16:31] VITALS: BP 133/66
[2022-09-20] MEDS: PRAZOSIN 1 MG CAP PO SCH (20:42)
[2022-09-20] MEDS: traZODone 50 MG TAB PO PRN (20:42)
[2022-09-21 06:46] VITALS: BP 122/55
[2022-09-21] MEDS: NICOTINE 21MG/24HR 1 EA TRANSDERMAL TD SCH (08:13)
[2022-09-21] MEDS: FLUoxetine 20MG CAP PO SCH (08:14)
[2022-09-21] MEDS: busPIRone 10 MG TAB PO SCH ×2 (08:14→20:10)
[2022-09-21] MEDS ORDERED: diphenhydrAMINE 50MG CAP PO PRN (10:30)
[2022-09-21 16:37] VITALS: BP 115/66
[2022-09-21] MEDS: traZODone 50 MG TAB PO PRN (20:10)
[2022-09-21] MEDS: PRAZOSIN 1 MG CAP PO SCH (20:10)
[2022-09-22 06:31] VITALS: BP 113/59
[2022-09-22] MEDS: FLUoxetine 20MG CAP PO SCH (08:19)
[2022-09-22] MEDS: busPIRone 10 MG TAB PO SCH ×2 (08:19→20:59)
[2022-09-22] MEDS: NICOTINE 21MG/24HR 1 EA TRANSDERMAL TD SCH (08:21)
[2022-09-22] MEDS ORDERED: ONDANSETRON 4MG ORAL DISINTEGRATING TAB SL PRN (12:25)
[2022-09-22] MEDS: MIRALAX *UNIT DOSE* 17GM PACKET PO SCH ×2 (12:39→20:59)
[2022-09-22 18:20] VITALS: BP 132/72
[2022-09-22] MEDS: traZODone 50 MG TAB PO PRN (20:59)
[2022-09-22 21:02] VITALS: BP 129/80
[2022-09-22] MEDS: PRAZOSIN 1 MG CAP PO SCH (21:02)
[2022-09-23 06:22] VITALS: BP 118/73
[2022-09-23] MEDS ORDERED: TRAZ-252 PO (08:40)
[2022-09-23] MEDS ORDERED: MINI1CAP PO (08:40)
[2022-09-23] MEDS ORDERED: ABIL1TAB11 PO (08:40)
[2022-09-23] MEDS ORDERED: NICO21PAT TD (08:40)
[2022-09-23] MEDS ORDERED: BUSP10TA PO (08:40)
[2022-09-23] MEDS ORDERED: MIRA1POW3 PO (08:40)
[2022-09-23] MEDS ORDERED: FLUO60TA PO (08:40)
[2022-09-23] MEDS: NICOTINE 21MG/24HR 1 EA TRANSDERMAL TD SCH (09:00)
[2022-09-23] MEDS: FLUoxetine 20MG CAP PO SCH (09:04)
[2022-09-23] MEDS: busPIRone 10 MG TAB PO SCH (09:04)
[2022-09-23] MEDS: MIRALAX *UNIT DOSE* 17GM PACKET PO SCH (09:04)
== END 2022-09-23 12:49 | disposition home or self-care (01) | DRG 751 ==
LOC: M ED 17:54 → M ED INP 21:59 → M PSY 23:23
PROVIDERS: ADMIT Student in an Organized Health Care Education/Training Program; ATTEND Student in an Organized Health Care Education/Training Program
DX: F33.1 Major depressive disorder, recurrent, moderate (principal); F43.20 Adjustment disorder, unspecified; F60.89 Other specific personality disorders; F12.10 Cannabis abuse, uncomplicated; F41.1 Generalized anxiety disorder; F17.290 Nicotine dependence, other tobacco product, uncomplicated; R45.851 Suicidal ideations; I77.811 Abdominal aortic ectasia; Z91.52 Personal history of nonsuicidal self-harm; Z62.810 Personal history of physical and sexual abuse in childhood; Z62.811 Personal history of psychological abuse in childhood; Z79.899 Other long term (current) drug therapy; Z20.822 Contact with and (suspected) exposure to COVID-19

== ENCOUNTER → 2022-09-26 | Outpatient (REF) | payer OTHER ==
[~2022-09-26] MED LIST changes: +ABIL1TAB11 PO; +ACET-897 PO; +FERR325T3 PO; +FLUO40CA PO; +FLUO60TA PO; +MIRA1POW3 PO
[2022-09-26 18:03] LABS: APPEARANCE, URINE CLEAR (CLEAR); BACTERIA, URINE AUTO NEGATIVE (NEGATIVE); BILIRUBIN, URINE AUTO NEGATIVE (NEGATIVE); BLOOD, URINE BLOOD NEGATIVE (NEGATIVE); COLOR, URINE STRAW (YELLOW); GLUCOSE, URINE (UA) AUTO NEGATIVE (NEGATIVE); KETONE, URINE AUTO NEGATIVE (NEGATIVE); LEUKOCYTE ESTERASE, URINE AUTO NEGATIVE (NEGATIVE); NITRITE, URINE AUTO NEGATIVE (NEGATIVE); PROTEIN, URINE AUTO NEGATIVE (NEGATIVE); RBC, URINE AUTO 0 /HPF (0-3); SPECIFIC GRAVITY URINE AUTO 1.005 (1.002-1.035); SQUAMOUS EPITHELIAL CELL UR AU 1 /HPF (0-6); UROBILINOGEN, URINE AUTO 0.2 mg/dL (0.0-2.0); WBC, URINE AUTO 0 /HPF (0-3)
[2022-09-26 20:30] LABS: GC DNA AMPLIFICATION NEGATIVE (NEGATIVE)
== END ==
LOC: M LAB REF 16:20
PROVIDERS: ATTEND Physician Assistant
DX: Z11.3 Encounter for screening for infections with a predominantly sexual mode of transmission (principal); N89.8 Other specified noninflammatory disorders of vagina

== ENCOUNTER 2022-10-11 18:29 | Inpatient (IN) | payer OTHER ==
[~2022-10-11] VITALS: Ht 177.8 cm; Wt 60.6 kg
[2022-10-11 19:24] LABS: HEMATOCRIT 36.2 % (36.0-47.0); HEMOGLOBIN 11.5 g/dl (12.0-15.5); MEAN CORPUSCULAR HEMOGLOBIN 29.6 pg (27.0-33.0); MEAN CORPUSCULAR HGB CONC 31.8 g/dl (32.0-36.5); MEAN CORPUSCULAR VOLUME 93.3 fl (80.0-96.0); PLATELET COUNT, AUTOMATED 375 10^3/uL (150-450); RED BLOOD COUNT 3.88 10^6/uL (4.00-5.40)
[2022-10-11 19:49] LABS: ETHYL ALCOHOL (ETHANOL) 0.003 % (0.000-0.010)
[2022-10-11 19:50] LABS: ACETAMINOPHEN LEVEL < 2.0 UG/ML (10.0-20.0)
[2022-10-11] MEDS ORDERED: PRAZ1CAP PO (19:50)
[2022-10-11] MEDS ORDERED: ARIP1TAB6 PO (19:50)
[2022-10-11] MEDS ORDERED: BUSP10TA PO (19:50)
[2022-10-11] MEDS ORDERED: FLUO60TA16 PO (19:50)
[2022-10-11 19:51] LABS: ALBUMIN 3.9 G/DL (3.2-5.2); ALKALINE PHOSPHATASE 61 U/L (46-116); ALT/SGPT 13 U/L (7.0-40); AMPHETAMINES LEVEL URINE NEGATIVE (NEGATIVE); AST/SGOT 12 U/L (<34); BARBITURATES URINE NEGATIVE (NEGATIVE); BENZODIAZEPINES URINE NEGATIVE (NEGATIVE); BILIRUBIN,DIRECT < 0.1 MG/DL (<0.4); BILIRUBIN,TOTAL 0.3 MG/DL (0.3-1.2); BLOOD UREA NITROGEN 13 MG/DL (9-23); CARBON DIOXIDE LEVEL 28 MMOL/L (20-31); CHLORIDE LEVEL 106 MMOL/L (98-107); COCAINE METABOLITE URINE NEGATIVE (NEGATIVE); CREATININE FOR GFR 0.72 MG/DL (0.55-1.30); GLOMERULAR FILTRATION RATE > 60.0 (>60); GLUCOSE, FASTING 93 MG/DL (60-100); HCG, SERUM QUALITATIVE NEGATIVE (NEGATIVE); METHADONE URINE NEGATIVE (NEGATIVE); OPIATES URINE NEGATIVE (NEGATIVE); PHENCYCLIDINE URINE NEGATIVE (NEGATIVE); POTASSIUM SERUM 3.6 MMOL/L (3.5-5.1); SALICYLATE LEVEL < 3.0 MG/DL (<30); SODIUM LEVEL 140 MMOL/L (136-145); TOTAL PROTEIN 6.6 G/DL (5.7-8.2)
[2022-10-11 19:53] LABS: THYROID STIMULATING HORMONE 1.036 uIU/ML (0.55-4.78)
[2022-10-11 19:54] LABS: CANNABINOIDS URINE POSITIVE (NEGATIVE)
[2022-10-11] MEDS ORDERED: HOME MED LIST COMPLETE! XX SCH (19:55)
[2022-10-11] MEDS ORDERED: MAALOX 30 ML SUSP *UDC PO PRN (20:35)
[2022-10-11] MEDS ORDERED: ACETAMINOPHEN TAB 650MG DOSE (2X325MG) PO PRN (20:35)
[2022-10-11] MEDS ORDERED: MOM 30ML SUSPENSION UDC PO PRN (20:35)
[2022-10-11 22:15] VITALS: BP 115/66
[2022-10-11] MEDS: traZODone 50 MG TAB PO PRN (23:11)
[2022-10-11] MEDS: busPIRone 10 MG TAB PO SCH (23:11)
[2022-10-11] MEDS: PRAZOSIN 1 MG CAP PO SCH (23:11)
[2022-10-12 06:14] VITALS: BP 105/51
[2022-10-12] MEDS: busPIRone 10 MG TAB PO SCH ×2 (08:26→21:49)
[2022-10-12] MEDS: FLUoxetine 20MG CAP PO SCH (08:26)
[2022-10-12] MEDS: ARIPiprazole 10 MG TAB PO SCH (08:26)
[2022-10-12] MEDS: NICOTINE 14 MG/24 HR TRANSDERMAL TD SCH (15:50)
[2022-10-12] MEDS: traZODone 50 MG TAB PO PRN (21:49)
[2022-10-12] MEDS: PRAZOSIN 1 MG CAP PO SCH (21:49)
[2022-10-13 06:30] VITALS: BP 129/76
[2022-10-13] MEDS: NICOTINE 14 MG/24 HR TRANSDERMAL TD SCH (08:40)
[2022-10-13] MEDS: ARIPiprazole 10 MG TAB PO SCH (08:40)
[2022-10-13] MEDS: FLUoxetine 20MG CAP PO SCH (08:40)
[2022-10-13] MEDS: busPIRone 10 MG TAB PO SCH ×2 (08:40→20:14)
[2022-10-13] MEDS: hydrOXYzine 50 MG TAB PO PRN (15:50)
[2022-10-13 17:52] VITALS: BP 113/61
[2022-10-13] MEDS ORDERED: ULIPRISTAL ACETATE 30MG TAB (ELLA) PO ONE (18:15)
[2022-10-13] MEDS: PRAZOSIN 1 MG CAP PO SCH (20:14)
[2022-10-13] MEDS: traZODone 50 MG TAB PO PRN (20:14)
[2022-10-14 06:28] VITALS: BP 127/58
[2022-10-14] MEDS: hydrOXYzine 50 MG TAB PO PRN (06:42)
[2022-10-14] MEDS: FLUoxetine 20MG CAP PO SCH (08:17)
[2022-10-14] MEDS: ARIPiprazole 10 MG TAB PO SCH (08:17)
[2022-10-14] MEDS: busPIRone 10 MG TAB PO SCH ×2 (08:17→20:02)
[2022-10-14] MEDS: NICOTINE 14 MG/24 HR TRANSDERMAL TD SCH (08:17)
[2022-10-14] MEDS: PANTOPRAZOLE 40MG TAB (PROTONIX) PO SCH (09:31)
[2022-10-14] MEDS ORDERED: SENNA 8.6 MG TAB (SENOKOT) PO PRN (10:35)
[2022-10-14 11:13] LABS: BASO # 0.1 10^3/uL (0.0-0.2); EOS # 0.4 10^3/uL (0.0-0.5); EOS % 5.1 % (0.0-3.0); HEMATOCRIT 37.1 % (36.0-47.0); HEMOGLOBIN 11.6 g/dl (12.0-15.5); LYMPH # 1.9 10^3/uL (1.5-5.0); MEAN CORPUSCULAR HEMOGLOBIN 29.4 pg (27.0-33.0); MEAN CORPUSCULAR HGB CONC 31.3 g/dl (32.0-36.5); MEAN CORPUSCULAR VOLUME 93.9 fl (80.0-96.0); MONO # 0.4 10^3/uL (0.0-0.8); MONO % 5.7 % (2.0-8.0); NEUTROPHILS # 4.3 10^3/uL (1.5-8.5); NEUTROPHILS % 60.9 % (36.0-66.0); PLATELET COUNT, AUTOMATED 294 10^3/uL (150-450); RED BLOOD COUNT 3.95 10^6/uL (4.00-5.40); WHITE BLOOD COUNT 7.1 10^3/uL (4.0-10.0)
[2022-10-14] MEDS: MIRALAX *UNIT DOSE* 17GM PACKET PO SCH ×2 (11:34→20:02)
[2022-10-14] MEDS: METAMUCIL (PSYLLIUM) PACKET PO SCH ×2 (11:34→20:02)
[2022-10-14 11:38] LABS: ALBUMIN 3.8 G/DL (3.2-5.2); ALKALINE PHOSPHATASE 56 U/L (46-116); ALT/SGPT 14 U/L (7.0-40); AST/SGOT 10 U/L (<34); BILIRUBIN,TOTAL 0.4 MG/DL (0.3-1.2); BLOOD UREA NITROGEN 15 MG/DL (9-23); CALCIUM LEVEL 8.9 MG/DL (8.5-10.1); CARBON DIOXIDE LEVEL 28 MMOL/L (20-31); CHLORIDE LEVEL 108 MMOL/L (98-107); CREATININE FOR GFR 0.79 MG/DL (0.55-1.30); GLOMERULAR FILTRATION RATE > 60.0 (>60); GLUCOSE, FASTING 94 MG/DL (60-100); POTASSIUM SERUM 3.9 MMOL/L (3.5-5.1); SODIUM LEVEL 139 MMOL/L (136-145); TOTAL PROTEIN 6.4 G/DL (5.7-8.2)
[2022-10-14 16:34] VITALS: BP 134/71
[2022-10-14 20:03] VITALS: BP 130/86
[2022-10-14] MEDS: PRAZOSIN 1 MG CAP PO SCH (20:03)
[2022-10-14] MEDS: traZODone 50 MG TAB PO PRN ×2 (20:03→21:41)
[2022-10-15 06:45] VITALS: BP 125/68
[2022-10-15] MEDS: NICOTINE 14 MG/24 HR TRANSDERMAL TD SCH (08:03)
[2022-10-15] MEDS: METAMUCIL (PSYLLIUM) PACKET PO SCH (08:05)
[2022-10-15] MEDS: MIRALAX *UNIT DOSE* 17GM PACKET PO SCH (08:05)
[2022-10-15] MEDS: FLUoxetine 20MG CAP PO SCH (08:06)
[2022-10-15] MEDS: PANTOPRAZOLE 40MG TAB (PROTONIX) PO SCH (08:06)
[2022-10-15] MEDS: ARIPiprazole 10 MG TAB PO SCH (08:06)
[2022-10-15] MEDS: busPIRone 10 MG TAB PO SCH (08:07)
[2022-10-15] MEDS ORDERED: SENN18TA PO (09:21)
[2022-10-15] MEDS ORDERED: PANT40TA29 PO (09:21)
[2022-10-15] MEDS ORDERED: TRAZ-252 PO (09:21)
[2022-10-15] MEDS ORDERED: HYDR50TA70 PO (09:21)
[2022-10-15] MEDS ORDERED: ABIL10TA9 PO (09:21)
[2022-10-15] MEDS ORDERED: MIRA1POW3 PO (09:21)
[2022-10-15] MEDS ORDERED: META1POW PO (09:21)
== END 2022-10-15 09:56 | disposition home or self-care (01) | DRG 754 ==
LOC: M ED 18:29 → M ED INP 20:31 → M PSY 22:14
PROVIDERS: ADMIT Psychiatry & Neurology Psychiatry; ATTEND Psychiatry & Neurology Psychiatry
DX: F32.A Depression, unspecified (principal); R45.851 Suicidal ideations; F60.89 Other specific personality disorders; F17.290 Nicotine dependence, other tobacco product, uncomplicated; K59.00 Constipation, unspecified; Z62.819 Personal history of unspecified abuse in childhood; Z56.0 Unemployment, unspecified; Z79.899 Other long term (current) drug therapy; Z91.51 Personal history of suicidal behavior; Z91.52 Personal history of nonsuicidal self-harm

== ENCOUNTER 2024-03-19 17:30 | Inpatient (IN) | payer OTHER, MEDICAID ==
[~2024-03-19] VITALS: Ht 177.8 cm; Wt 81.0 kg
[~2024-03-19 17:30] MED LIST changes: +ABIL10TA9 PO; +ARIP1TAB6 PO; +FLUO-365 PO; -FLUO20CA22 PO; +FLUO60TA16 PO; +HYDR50TA70 PO; -MEDR150I10 IM; +MEDR150I13 IM; +META1POW PO; -MIRA1POW3 PO; +MIRA33506 PO; -MIRT-60 PO; +MIRT-89 PO; +PANT40TA29 PO; +PRAZ1CAP PO; +SENN-165 PO
[2024-03-19 17:38] VITALS: BP 121/73
[2024-03-19] MEDS ORDERED: FOLI400T13 PO (17:46)
[2024-03-19] MEDS ORDERED: PREN200C PO (17:46)
[2024-03-19] MEDS ORDERED: FLUO-365 PO (17:46)
[2024-03-19] MEDS ORDERED: HOME MED LIST COMPLETE! XX SCH (17:50)
[2024-03-19 19:01] VITALS: BP 121/66
[2024-03-19 21:31] VITALS: BP 113/58
[2024-03-20] VITALS (8 sets, daily range): BP systolic 94–119; BP diastolic 51–71; O2SAT 98
[2024-03-20] MEDS: PRENATAL VITAMINS CHEWABLE TABLET PO SCH (09:29)
[2024-03-20] MEDS: FLUoxetine 20MG CAP PO SCH (09:29)
[2024-03-20] MEDS: ACETAMINOPHEN 500 MG TAB PO PRN (11:26)
[2024-03-21 04:54] VITALS: BP 105/53
[2024-03-21 08:37] VITALS: BP 110/53; O2SAT 98
[2024-03-21 17:47] VITALS: BP 116/58; O2SAT 99
[2024-03-21] MEDS: ONDANSETRON 4MG 2ML VIAL IV PRN (22:34)
[2024-03-22 05:53] VITALS: BP 100/56; O2SAT 98
[2024-03-22 10:46] VITALS: BP 110/65; O2SAT 100
[2024-03-22 14:35] VITALS: BP 134/64; O2SAT 99
[2024-03-22 18:19] VITALS: BP 122/61; O2SAT 99
[2024-03-22] MEDS: HEPARIN SOD (PORCINE) 5000UNITS/ML 1ML VIAL/SYRINGE SQ SCH (20:47)
[2024-03-23 02:00] VITALS: BP 111/58; O2SAT 97
[2024-03-23 10:17] VITALS: BP 121/72; O2SAT 99
[2024-03-23 14:07] VITALS: BP 122/72; O2SAT 99
[2024-03-23 18:20] VITALS: BP 134/74; O2SAT 100
[2024-03-23 22:00] VITALS: BP 129/71; O2SAT 100
[2024-03-24 02:00] VITALS: BP 110/57; O2SAT 99
[2024-03-24 06:30] VITALS: BP 110/57; O2SAT 98
[2024-03-24] MEDS: DOCUSATE SODIUM 100MG CAPSULE PO SCH (09:12)
[2024-03-24 10:00] VITALS: BP 110/59; O2SAT 96
[2024-03-24 14:00] VITALS: BP 117/66; O2SAT 18
[2024-03-24 18:00] VITALS: BP 118/68; O2SAT 99
[2024-03-24 21:57] VITALS: BP 123/66; O2SAT 100
[2024-03-25 02:04] VITALS: BP 112/69; O2SAT 99
[2024-03-25 06:00] VITALS: BP 116/65; O2SAT 100
[2024-03-25 07:11] LABS: HEMATOCRIT 31.1 % (36.0-47.0); HEMOGLOBIN 10.3 g/dl (12.0-15.5); MEAN CORPUSCULAR HEMOGLOBIN 31.2 pg (27.0-33.0); MEAN CORPUSCULAR HGB CONC 33.1 g/dl (32.0-36.5); MEAN CORPUSCULAR VOLUME 94.2 fl (80.0-96.0); PLATELET COUNT, AUTOMATED 212 10^3/uL (150-450)
[2024-03-25 10:57] VITALS: BP 114/68; O2SAT 98
[2024-03-25 14:18] VITALS: BP 115/62; O2SAT 99
[2024-03-25 18:17] VITALS: BP 119/63; O2SAT 100
[2024-03-26 02:00] VITALS: BP 100/70; O2SAT 96
[2024-03-26 09:53] VITALS: BP 125/60; O2SAT 96
[2024-03-26 17:55] VITALS: BP 107/57; O2SAT 94
[2024-03-27 01:49] VITALS: BP 100/56; O2SAT 99
[2024-03-27 08:00] VITALS: BP 100/56; TEMP 98.4; O2SAT 99
[2024-03-27] MEDS ORDERED: **** TDAP VACCINE DUE PRIOR TO D/C**** MISC XX SCH (09:00)
[2024-03-27 10:07] VITALS: BP 98/53; O2SAT 98
[2024-03-27 18:54] VITALS: BP 118/62; O2SAT 99
[2024-03-27 23:31] LABS: HEMATOCRIT 33.1 % (36.0-47.0); HEMOGLOBIN 11.1 g/dl (12.0-15.5); MEAN CORPUSCULAR HEMOGLOBIN 31.7 pg (27.0-33.0); MEAN CORPUSCULAR HGB CONC 33.5 g/dl (32.0-36.5); MEAN CORPUSCULAR VOLUME 94.6 fl (80.0-96.0); PLATELET COUNT, AUTOMATED 216 10^3/uL (150-450); WHITE BLOOD COUNT 11.6 10^3/uL (4.0-10.0)
[2024-03-28] VITALS (8 sets, daily range): BP systolic 103–122; BP diastolic 53–73; TEMP 97; O2SAT 98–100
[2024-03-28] MEDS ORDERED: OXYTOCIN INJ 10UNITS/ML 1ML VIAL As Ordered ONE (07:19)
[2024-03-28] MEDS ORDERED: PHENYLEPHRINE 10MG/ML 1ML VIAL As Ordered ONE (07:20)
[2024-03-28] MEDS ORDERED: ONDANSETRON 4MG 2ML VIAL As Ordered ONE (07:20)
[2024-03-28] MEDS: BICITRA 30ML SOLN UDC PO ONE (07:24)
[2024-03-28] MEDS: LR 1,000 ML IV SCH ×2 (07:24→13:32)
[2024-03-28] MEDS: ceFAZolin SOD 2 GM in IV 1 EA IV ONE (07:25)
[2024-03-28] MEDS: LACTATED RINGER'S 1000 ML IV STA (07:26)
[2024-03-28] MEDS ORDERED: MORPHINE PRES-FREE INJ 10 MG/10 ML VIAL As Ordered ONE (07:37)
[2024-03-28 07:58] LABS: HEMATOCRIT 31.7 % (36.0-47.0); HEMOGLOBIN 10.3 g/dl (12.0-15.5); MEAN CORPUSCULAR HEMOGLOBIN 30.7 pg (27.0-33.0); MEAN CORPUSCULAR HGB CONC 32.5 g/dl (32.0-36.5); MEAN CORPUSCULAR VOLUME 94.6 fl (80.0-96.0); PLATELET COUNT, AUTOMATED 182 10^3/uL (150-450); RED BLOOD COUNT 3.35 10^6/uL (4.00-5.40); WHITE BLOOD COUNT 9.7 10^3/uL (4.0-10.0)
[2024-03-28] MEDS ORDERED: KETOROLAC 60MG 2ML VIAL As Ordered ONE (08:34)
[2024-03-28] MEDS ORDERED: OXYTOCIN 30UNITS IN 0.9% NaCl 500ML IV BAG As Ordered ONE (08:39)
[2024-03-28] MEDS ORDERED: fentaNYL 100 MCG/2 ML INJECTION IV PRN (08:50)
[2024-03-28] MEDS ORDERED: NALOXONE INJ 0.4MG/1ML VIAL IV PRN ×2 (08:50)
[2024-03-28] MEDS ORDERED: HYDROMORPHONE HCL 0.5 MG/ 0.5 ML SYRINGE IV PRN (08:50)
[2024-03-28] MEDS ORDERED: **NOTE PATIENT COMMENT** MISC XX SCH (08:50)
[2024-03-28] MEDS ORDERED: oxyCODONE 5MG TAB PO PRN (08:50)
[2024-03-28] MEDS ORDERED: ONDANSETRON 4MG 2ML VIAL IV PRN (08:50)
[2024-03-28] MEDS ORDERED: RHO(D) IMMUNE GLOBULIN/MALTOSE 500MCG(2500IU)/2.2ML VIAL (WINRHO) IM SCH (09:15)
[2024-03-28] MEDS ORDERED: PERCOCET 5MG/325MG TAB PO PRN (09:15)
[2024-03-28] MEDS ORDERED: SIMETHICONE 80MG CHEW TAB PO PRN (09:15)
[2024-03-28] MEDS: OXYTOCIN DRIP 30 UNITS in IV 1 EA IV SCH (09:19)
[2024-03-28] MEDS: METOCLOPRAMIDE INJ 10MG/2ML VIAL IV PRN (11:57)
[2024-03-28] MEDS: SLF 3 ML SYR IV SCH (11:58)
[2024-03-28] MEDS: diphenhydrAMINE 50MG/ML VIAL IV PRN (12:21)
[2024-03-28] MEDS: KETOROLAC 30 MG/ML 1ML VIAL IV SCH (15:50)
[2024-03-29 02:00] VITALS: BP 120/65; O2SAT 99
[2024-03-29] MEDS ORDERED: COLA100C5 PO (05:29)
[2024-03-29] MEDS ORDERED: IBUP80TA PO (05:29)
[2024-03-29] MEDS ORDERED: OXYC1TAB23 PO (05:29)
[2024-03-29 06:00] VITALS: BP 104/51; O2SAT 97
[2024-03-29 07:16] LABS: HEMATOCRIT 27.5 % (36.0-47.0); HEMOGLOBIN 9.2 g/dl (12.0-15.5); MEAN CORPUSCULAR HEMOGLOBIN 31.5 pg (27.0-33.0); MEAN CORPUSCULAR HGB CONC 33.5 g/dl (32.0-36.5); MEAN CORPUSCULAR VOLUME 94.2 fl (80.0-96.0); PLATELET COUNT, AUTOMATED 163 10^3/uL (150-450); RED BLOOD COUNT 2.92 10^6/uL (4.00-5.40); WHITE BLOOD COUNT 11.6 10^3/uL (4.0-10.0)
[2024-03-29] MEDS: PRENATAL VITAMINS CHEWABLE TABLET PO SCH (08:32)
[2024-03-29] MEDS: **** TDAP VACCINE DUE PRIOR TO D/C**** MISC XX SCH (09:00)
[2024-03-29 10:00] VITALS: BP 126/60; O2SAT 97
[2024-03-29] MEDS: IBUPROFEN 800 MG TAB PO SCH (11:06)
[2024-03-29] MEDS: DOCUSATE SODIUM 100MG CAPSULE PO PRN (11:57)
[2024-03-29 14:00] VITALS: BP 105/59; O2SAT 95
[2024-03-29 18:00] VITALS: BP 137/75; O2SAT 97
[2024-03-29 22:00] VITALS: BP 130/71; O2SAT 98
[2024-03-30 02:00] VITALS: BP 129/72; O2SAT 99
[2024-03-30 06:00] VITALS: BP 119/66; O2SAT 98
[2024-03-30] MEDS: MEASLES,MUMPS,RUBELLA VACCINE INJ (MMR-II) SC.IMMUN ONE (07:08)
[2024-03-30] MEDS ORDERED: FLUZONE VACCINE TRIVALENT PF(2024-25) 0.5ML SYRINGE IM.IMMUN ONE (09:00)
[2024-03-30] MEDS ORDERED: BOOSTRIX VACCINE (TETANUS/DIPHTH/ACEL. PERTUSSIS) 0.5ML SYR IM.IMMUN ONE (09:00)
[2024-03-30] MEDS: PERCOCET 5MG/325MG TAB PO PRN (09:11)
[2024-03-30 10:00] VITALS: BP 122/55; O2SAT 99
[2024-03-30 18:00] VITALS: BP 125/65; O2SAT 99
[2024-03-30 22:00] VITALS: BP_SYST 110; BP_SYST 118; BP_DIAS 58; BP_DIAS 68; O2SAT 98; O2SAT 99
[2024-03-31 02:00] VITALS: BP 116/60; O2SAT 97
[2024-03-31 06:00] VITALS: BP 119/67; O2SAT 99
[2024-03-31] MEDS: BOOSTRIX VACCINE (TETANUS/DIPHTH/ACEL. PERTUSSIS) 0.5ML SYR IM.IMMUN ONE (12:06)
[2024-03-31] MEDS: FLUZONE VACCINE TRIVALENT PF(2024-25) 0.5ML SYRINGE IM.IMMUN ONE (12:07)
== END 2024-03-31 14:00 | disposition home or self-care (01) | DRG 788 ==
LOC: M LDI 17:30 → M OBS 03-20 18:30 → M LDI 03-20 19:38 → M OBS 03-21 16:32 → M LDI 03-27 23:00 → M OBS 03-28 09:41
PROVIDERS: ADMIT Specialist; ATTEND Obstetrics & Gynecology
PROC: 10D00Z1 Extraction of Products of Conception, Low, Open Approach (ICD-10-PCS; principal; 2024-03-28 07:30)
DX: O60.14X1 Preterm labor third trimester with preterm delivery third trimester, fetus 1 (principal); O60.14X2 Preterm labor third trimester with preterm delivery third trimester, fetus 2; O32.8XX2 Maternal care for other malpresentation of fetus, fetus 2; Z3A.34 34 weeks gestation of pregnancy; Z37.2 Twins, both liveborn; O30.043 Twin pregnancy, dichorionic/diamniotic, third trimester

== ENCOUNTER 2025-04-05 01:28 | Inpatient (IN) | payer MEDICAID, OTHER ==
[~2025-04-05] VITALS: Ht 175.3 cm; Wt 75.0 kg
[~2025-04-05 01:28] MED LIST changes: +COLA100C5 PO; +FOLI400T13 PO; +IBUP80TA PO; +OXYC1TAB23 PO; +PREN200C PO
[2025-04-05 02:01] LABS: PLATELET COUNT, AUTOMATED 306 10^3/uL (150-450)
[2025-04-05 02:12] LABS: AMPHETAMINES LEVEL URINE NEGATIVE (NEGATIVE); BARBITURATES URINE NEGATIVE (NEGATIVE); BENZODIAZEPINES URINE NEGATIVE (NEGATIVE); COCAINE METABOLITE URINE NEGATIVE (NEGATIVE); METHADONE URINE NEGATIVE (NEGATIVE); OPIATES URINE NEGATIVE (NEGATIVE); PHENCYCLIDINE URINE NEGATIVE (NEGATIVE)
[2025-04-05 02:16] LABS: SALICYLATE LEVEL < 3.0 MG/DL (<30)
[2025-04-05 02:56] LABS: CANNABINOIDS URINE POSITIVE (NEGATIVE)
[2025-04-05 03:13] LABS: ETHYL ALCOHOL (ETHANOL) 0.144 % (0.000-0.010)
[2025-04-05 03:25] LABS: HCG, SERUM QUALITATIVE NEGATIVE (NEGATIVE)
[2025-04-05 03:52] LABS: ALT/SGPT 15 U/L (7.0-40); AST/SGOT 18 U/L (<34); CALCIUM LEVEL 8.5 MG/DL (8.5-10.1); CARBON DIOXIDE LEVEL 23 MMOL/L (20-31); CHLORIDE LEVEL 109 MMOL/L (98-107); CREATININE FOR GFR 0.80 MG/DL (0.55-1.30); GLOMERULAR FILTRATION RATE > 90.0 (>60); POTASSIUM SERUM 3.7 MMOL/L (3.5-5.1); SODIUM LEVEL 143 MMOL/L (136-145)
[2025-04-05] MEDS ORDERED: HOME MED LIST COMPLETE! XX SCH (08:00)
[2025-04-05] MEDS ORDERED: IBUPROFEN 400 MG TAB PO PRN (12:15)
[2025-04-05] MEDS ORDERED: OLANZapine 5 MG TAB PO PRN (12:15)
[2025-04-05] MEDS ORDERED: ACETAMINOPHEN 325 MG TAB PO PRN (12:15)
[2025-04-05] MEDS ORDERED: MOM 30 ML SUSPENSION UDC PO PRN (12:15)
[2025-04-05] MEDS ORDERED: MAALOX 30 ML SUSP *UDC PO PRN (12:15)
[2025-04-05 13:00] VITALS: BP 108/65; TEMP 97.5; O2SAT 99
[2025-04-05] MEDS: FLUoxetine 20 MG CAP PO SCH (13:52)
[2025-04-05] MEDS: NICOTINE 14 MG/24 HR TRANSDERMAL TD SCH (13:53)
[2025-04-05] MEDS: traZODone 50 MG TAB PO PRN (20:10)
[2025-04-05] MEDS: LORazepam 1 MG TAB PO PRN (20:11)
[2025-04-06 06:18] VITALS: BP 94/52; TEMP 97.3; O2SAT 99
[2025-04-06] MEDS: FLUoxetine 20 MG CAP PO ONE (09:14)
[2025-04-06] MEDS: HALOPERIDOL 5 MG TAB PO PRN (14:04)
[2025-04-06] MEDS: FOLIC ACID 1 MG TAB PO SCH (14:05)
[2025-04-06] MEDS: THIAMINE 100 MG TAB PO SCH (14:05)
[2025-04-06 15:18] VITALS: BP 112/71; TEMP 98.6; O2SAT 98
[2025-04-07 06:43] VITALS: BP 127/76; TEMP 98.3; O2SAT 98
[2025-04-07] MEDS: FLUoxetine 20 MG CAP PO SCH (09:32)
[2025-04-07] MEDS: MULTIVITAMINS/MINERALS THERAP 1 TAB PO SCH (09:32)
[2025-04-07] MEDS: NALTREXONE 50 MG TAB PO SCH (09:32)
[2025-04-07 12:41] VITALS: BP 127/76
[2025-04-07 15:18] VITALS: BP 123/71; TEMP 98.3; O2SAT 99
[2025-04-07 22:00] VITALS: BP 123/71
[2025-04-08 06:40] VITALS: BP 123/68; TEMP 98.1; O2SAT 99
[2025-04-08 14:00] VITALS: BP 121/78; TEMP 98; O2SAT 100
[2025-04-08 22:00] VITALS: BP 121/78
[2025-04-09 06:47] VITALS: BP 113/85; TEMP 97.8; O2SAT 99
[2025-04-09 10:00] VITALS: BP 120/77
[2025-04-09] MEDS: NICOTINE POLACRILEX 2 MG GUM PO PRN (12:24)
[2025-04-09 22:00] VITALS: BP 120/77
[2025-04-10 06:00] VITALS: BP 102/62; TEMP 98.2; O2SAT 97
[2025-04-10] MEDS ORDERED: THERTAB19 PO (12:36)
[2025-04-10] MEDS ORDERED: TRAZ-252 PO (12:36)
[2025-04-10] MEDS ORDERED: NALT50TA4 PO (12:36)
[2025-04-10] MEDS ORDERED: ABIL1TAB11 PO (12:36)
[2025-04-10] MEDS ORDERED: FLUO40CA PO (12:36)
[2025-04-10] MEDS ORDERED: FOLI1TAB11 PO (12:36)
[2025-04-10] MEDS ORDERED: THIA100TA PO (12:36)
== END 2025-04-10 14:48 | disposition home or self-care (01) | DRG 751 ==
LOC: M ED 01:28 → M ED INP 12:13 → M PSY 13:20
PROVIDERS: ADMIT Internal Medicine; ATTEND Internal Medicine
DX: F33.1 Major depressive disorder, recurrent, moderate (principal); R45.851 Suicidal ideations; F60.3 Borderline personality disorder; F41.1 Generalized anxiety disorder; F43.10 Post-traumatic stress disorder, unspecified; F10.920 Alcohol use, unspecified with intoxication, uncomplicated; F17.200 Nicotine dependence, unspecified, uncomplicated; F12.90 Cannabis use, unspecified, uncomplicated; F60.89 Other specific personality disorders; Z81.8 Family history of other mental and behavioral disorders; Z63.8 Other specified problems related to primary support group; Z56.0 Unemployment, unspecified; Z79.899 Other long term (current) drug therapy; Z71.51 Drug abuse counseling and surveillance of drug abuser; Z91.51 Personal history of suicidal behavior